=== PATIENT | male | born 1995 | race Two or more races ===

== ENCOUNTER → 2021-11-06 | Outpatient (CLI) | payer OTHER | LOC: LAB 12:30 | PROVIDERS: ATTEND Surgery | DX: Z01.812 Encounter for preprocedural laboratory examination (principal); U07.1 COVID-19; L05.91 Pilonidal cyst without abscess | CPT/HCPCS: U0003 ==

== ENCOUNTER 2021-12-13 05:50 | Day surgery (SDC) | payer OTHER ==
[~2021-12-13] VITALS: Ht 167.6 cm; Wt 97.5 kg
[2021-12-13] MEDS ORDERED: HYDROmorphone 2 MG/ML INJ. IVP PRN (06:00)
[2021-12-13] MEDS ORDERED: PROCHLORPERAZINE 10 MG/2 ML VIAL. IVP PRN (06:00)
[2021-12-13] MEDS ORDERED: IV RINGERS,LACTATED 1000ML 1,000 ML IV SCH (06:00)
[2021-12-13] MEDS ORDERED: MORPHINE SULFATE 2 MG/ML INJ. IVP PRN (06:00)
[2021-12-13] MEDS ORDERED: fentaNYL PF VIAL 100 MCG/2 ML VIAL IVP PRN ×2 (06:00)
[2021-12-13] MEDS ORDERED: ACETAMINOPHEN 500 MG TABLET PO ONE (06:15)
[2021-12-13 06:23] VITALS: BP 123/70
--- NOTE | 2021-12-13 07:15 | PDOC1 ---
History and Physical Date of Admission Date of Admission DATE: 12/13/21 TIME: 07:12 Identification/Chief Complaint Chief Complaint Chronically draining wound on the buttocks Source Source: Patient History of Present Illness History of Present Illness 25-year-old male with complaints of a chronically draining wound on his buttocks been present for approximately 1 year Past Medical History Cardiovascular: No pertinent hx Pulmonary: No pertinent hx GI: No pertinent hx Heme/Onc: No pertinent hx Hepatobiliary: No pertinent hx Psych: No pertinent hx Rheumatologic: No pertinent hx Infectious disease: No pertinent hx ENT: No pertinent hx Renal/: No pertinent hx Endocrine: No pertinent hx Dermatology: No pertinent hx Past Surgical History Past Surgical History: No pertinent history Family History Family History: No Significant Social History Smoke: No ALCOHOL: none Drugs: None Current Medications Current Medications Current Medications Fentanyl Citrate (Fentanyl 2ml Vial) 25 mcg PRN Q5MIN PRN IVP MILD PAIN 1-3; Start 12/13/21 at 06:00; Stop 12/14/21 at 05:59 Fentanyl Citrate (Fentanyl 2ml Vial) 50 mcg PRN Q5MIN PRN IVP MODERATE PAIN 4- 6; Start 12/13/21 at 06:00; Stop 12/14/21 at 05:59 Morphine Sulfate (Morphine Sulfate) 1 mg PRN Q10MIN PRN IVP SEVERE PAIN 7-10; Start 12/13/21 at 06:00; Stop 12/14/21 at 05:59 Ringer's Solution 1,000 ml @ 30 mls/hr Q24H IV Last administered on 12/13/21at 06:25; Start 12/13/21 at 06:00; Stop 12/13/21 at 17:59 Hydromorphone HCl (Dilaudid) 0.5 mg PRN Q10MIN PRN IVP SEVERE PAIN 7-10, 2nd CHOICE; Start 12/13/21 at 06:00; Stop 12/14/21 at 05:59 Prochlorperazine Edisylate (Compazine) 5 mg PACU PRN PRN IVP NAUSEA, MRX1; Start 12/13/21 at 06:00; Stop 12/14/21 at 05:59 Cefazolin Sodium/ Dextrose 50 ml @ 100 mls/hr 1X PREOP PRN IV PRIOR TO PROCEDURE; Start 12/13/21 at 06:00; Stop 12/13/21 at 18:00 Acetaminophen (Tylenol) 1,000 mg 1X ONCE PO Last administered on 12/13/21at 06:25; Start 12/13/21 at 06:15; Stop 12/13/21 at 06:16; Status DC Active Scripts Active Reported No Known Medications Prior To Admisstion (Info) Each 1 Each DAILY Allergies Allergies: Coded Allergies: No Known Drug Allergies (Unverified , 12/13/21) ROS General: No: Chills, Night Sweats, Fatigue, Malaise, Appetite, Other PSYCHOLOGICAL ROS: No: Anxiety, Behavioral Disorder, Concentration difficultie, Decreased libido, Depression, Disorientation, Hallucinations, Hostility, Irritablity, Memory difficulties, Mood Swings, Obsessive thoughts, Physical abuse, Sexual abuse, Sleep disturbances, Suicidal ideation, Other Eyes: No Blurry vision, No Decreased vision, No Double vision, No Dry eyes, No Excessive tearing, No Eye Pain, No Itchy Eyes, No Loss of vision, No Photophobia, No Scotomata, No Uses contacts, No Uses glasses, No Other HEENT: No: Heacaches, Visual Changes, Hearing change, Nasal congestion, Nasal discharge, Oral lesions, Sinus pain, Sore Throat, Epistaxis, Sneezing, Snoring, Tinnitus, Vertigo, Vocal changes, Other ALLERGY AND IMMUNOLOGY: No: Hives, Insect Bite Sensitivity, Itchy/Watery Eyes, Nasal Congestion, Post Nasal Drip, Seasonal Allergies, Other Hematological and Lymphatic: No: Bleeding Problems, Blood Clots, Blood Transfusions, Brusing, Night Sweats, Pallor, Swollen Lymph Nodes, Other ENDOCRINE: No: Breast Changes, Galactorrhea, Hair Pattern Changes, Hot Flashes, Malaise/lethargy, Mood Swings, Palpitations, Polydipsia/polyuria, Skin Changes, Temperature Intolerance, Unexpected Weight Changes, Other Respiratory: No: Cough, Hemoptysis, Orthopnea, Pleuritic Pain, Shortness of breath, SOB with excertion, Sputum Changes, Stridor, Tachypnea, Wheezing, Other Cardiovascular: No Chest Pain, No Palpitations, No Orthopnea, No Paroxysmal Noc. Dyspnea, No Edema, No Lt Headedness, No Other Gastrointestinal: No Nausea, No Vomiting, No Abdominal Pain, No Diarrhea, No Constipation, No Melena, No Hematochezia, No Other Genitourinary: No Dysuria, No Frequency, No Incontinence, No Hematuria, No Retention, No Discharge, No Urgency, No Pain, No Flank Pain, No Other, No , No , No , No , No , No , No Musculoskeletal: No Gait Disturbance, No Joint Pain, No Joint Stiffness, No Joint Swelling, No Muscle Pain, No Muscular Weakness, No Pain In:, No Swelling In:, No Other Neurological: No Behavorial Changes, No Bowel/Bladder ControlChng, No Confusion, No Dizziness, No Gait Disturbance, No Headaches, No Impaired Coord/balance, No Memory Loss, No Numbness/Tingling, No Seizures, No Speech Problems, No Tremors, No Visual Changes, No Weakness, No Other Skin: Yes Other (Draining wound on buttocks in the midline) Physical Exam General: Alert, Oriented X3, Cooperative, No acute distress HEENT: Atraumatic, EOMI Lungs: Clear to auscultation, Normal air movement Heart: RRR, no murmurs Abdomen: Normal bowel sounds, Soft, No tenderness Rectal Exam: other (Small punctate opening midline buttocks consistent with pilonidal cyst) Extremities: No edema Skin: No significant lesion Neuro: Normal speech Vitals Vitals Vital Signs Date Time Temp Pulse Resp B/P (MAP) Pulse Ox O2 Delivery O2 Flow Rate FiO2 12/13/21 06:23 98.0 87 20 98 98.0 12/13/21 06:20 123/70 Room Air VTE Prophylaxis Ordered VTE Prophylaxis Devices: Yes VTE Pharmacological Prophylaxi: Contraindicated Assessment/Plan Assessment/Plan Pilonidal cyst plan excision Justifications for Admission Other Justification KAREN DAVEY MD Dec 13, 2021 07:15
[2021-12-13] MEDS ORDERED: PROPOFOL 10 MG/ML (20ML) VIAL. IV ONE (08:44)
[2021-12-13] MEDS ORDERED: LIDOCAINE 2% PF 5 ML VIAL. ONE (08:44)
[2021-12-13] MEDS ORDERED: ONDANSETRON PF 4 MG/2 ML VIAL. ONE (08:44)
[2021-12-13] MEDS ORDERED: DEXAMETHASONE SOD PHOS 4 MG/ML VIAL ONE (08:44)
[2021-12-13] MEDS ORDERED: SEVOFLURANE 31 TO 60 MINUTES. IH ONE (08:44)
[2021-12-13] MEDS ORDERED: MIDAZOLAM HCL/PF 2 MG/2 ML VIAL. ONE (08:45)
[2021-12-13] MEDS ORDERED: fentaNYL PF VIAL 100 MCG/2 ML VIAL ONE ×2 (08:45→09:26)
[2021-12-13] MEDS ORDERED: BUPIVACAINE-EPI 0.25% 30 ML VIAL KIT. ONE (08:47)
--- NOTE | 2021-12-13 09:56 | PDOC4 ---
Operative Note Operative Note Date: December 13, 2021 at 9:53 AM Preoperative diagnosis: Pilonidal cyst Postoperative diagnosis: Same Procedure: Pilonidal cystectomy Surgeon: Misael Specimen: Pilonidal cyst Dictation: Patient is 26-year-old male has complaints of a chronic draining wound on his upper buttocks. Procedure of excision of pilonidal cyst was explained to the patient detail risk benefits were also discussed including bleeding infection alternatives this procedure also discussed with the patient who seemed to understand and gave a verbal written consent had procedure performed. Patient was taken to the operating room placed in the supine position general anesthesia was initiated once patient was sleeping intubated he was then placed in the prone positioning and his buttocks was prepped and draped usual sterile fashion using ChloraPrep. Area around the pilonidal cyst was injected with quarter percent Marcaine with epinephrine an elliptical incision was made in the midline excising the pilonidal cyst using electrocautery provide hemostasis down to the fascia of the coccyx. It was noted there was a fistula tunneling about 2 cm superiorly and to the left of the midline this was too far to completely excised so the fistulous tract was opened and curetted of the epithelial tissue and then cauterized for hemostasis. The wound was then closed in a deep layer running 0 Vicryl deep subcutaneous layer running 3-0 Vicryl and then the skin was reapproximated with horizontal mattress sutures with 3-0 nylon the very upper portion where the fistulous tract of been open was about a centimeter and a half in length this was packed with iodoform Nu Gauze quarter- inch. The wound was then dressed with ABD and mesh pants. Patient was then positioned back into the supine position was awakened and extubated and taken to recovery in stable condition all sponge instrument needle counts listed as correct estimated blood loss 30 mL KAREN DAVEY MD Dec 13, 2021 09:56
[2021-12-13] MEDS ORDERED: OXYC-325 PO (09:58)
--- NOTE | 2021-12-13 10:00 | DISCH ---
DISCHARGE INSTRUCTIONS Condition on Discharge Condition on Discharge: Stable Activity After Discharge Activity Instructions for Disc: Avoid exertion Diet after Discharge Diet after Discharge: Regular Wound Incision Care Other wound/incision instructi: May shower in 24 hours, packing needs to be changed daily Contacting the after DC Call your doctor for: If your condition worsens Follow-Up Follow up with: Dr. Davey in 2 KAREN DAVEY MD Dec 13, 2021 10:00
[2021-12-13] MEDS ORDERED: oxyCODONE/APAP 5/325 1 TAB TABLET PO ONE (10:15)
[2021-12-13 11:10] VITALS: BP 112/56
== END 2021-12-13 11:22 | disposition home or self-care (01) ==
LOC: SURG 05:50
PROVIDERS: ATTEND Surgery
DX: L05.91 Pilonidal cyst without abscess (principal); Z79.899 Other long term (current) drug therapy; Z98.890 Other specified postprocedural states
CPT/HCPCS: 11770; A4930; A6253; A6402; A6407; J0690; J1100; J2250; J2405; J2704; J3010